=== PATIENT | male | born 1980 | race Caucasian/White ===

== ENCOUNTER 2021-05-07 15:46 | Emergency (ER) | payer OTHER, BC, SELFPAY ==
--- NOTE | ~2021-05-07 | XR_ITS ---
EXAMINATION: XR foot LT min 3V EXAM DATE: 05/07/2021 16:08 INDICATION: Stepped in hole, pain to left anterior foot. Initial encounter. TECHNIQUE: Left foot dorsoplantar, lateral and oblique projections obtained and reviewed. There is n o prior study for comparison. FINDINGS: Left metatarsal bones unremarkable. 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 There are no acute fractures or dislocations identified. There is no subcutaneous gas . The soft tissue is unremarkable. There are no radiopaque foreign bodies. IMPRESSION: 1. XR foot LT min 3V exam without acute osseous findings. Reviewed, dictated and finalized at location A. [facility]
[2021-05-07 16:01] VITALS: BP 157/105; PULSE 109; RESP 16; TEMP 36.8; O2SAT 99
--- NOTE | 2021-05-07 16:26 | ED.LOWEXIN ---
HPI - Extremity Injury (Lower) General Chief Complaint: Extremity Injury, Lower Stated Complaint: left foot work injury Time Seen by Provider: 05/07/21 16:17 Source: patient and RN notes reviewed Mode of arrival: ambulatory Limitations: no limitations History of Present Illness HPI Narrative: Patient presents today complaining of a left foot and ankle injury that occurred around 1030 this morning. He was working for [employer] and turned his foot incorrectly on a pile of frozen mud. The more he walked, the more painful his foot and ankle became. It became even worse after driving for a period of time around 1300 this afternoon. He has not tried any [id number] interventions for pain prior to arrival. MD complaint: ankle injury and foot injury Related Data Home Medications Medication Instructions Recorded Confirmed No Home Medications 07/29/20 07/29/20 Allergies Allergy/AdvReac Type Severity Reaction Status Date / Time No Known Allergies Allergy Unverified 05/07/21 16:08 Review of Systems Review of Systems: CONSTITUTIONAL: Denies body aches, fever, chills, or sweats. EYES: Denies visual changes, redness, or discharge. ENT: Denies rhinorrhea, congestion, sore throat, or otalgia. CARDIOVASCULAR: Denies chest pain, palpitations, or edema. RESPIRATORY: Denies cough or dyspnea. GASTROINTESTINAL: Denies abdominal pain, nausea, vomiting, or diarrhea. GENITOURINARY: Denies dysuria or hematuria. SKIN: Denies rash, itching, or wounds. MUSCULOSKELETAL: Denies back pain, or myalgia.+ Foot and ankle pain NEUROLOGIC: Denies headache, numbness, tingling, or weakness. PSYCH: Denies depression or anxiety. COUNTS INCLUDE 234 BEDS AT THE [facility] Family History Family History Mother Diabetes mellitus Social History Social History Smoking status: Never smoker Second hand tobacco smoke exposure: No Alcohol intake: current Substance use: never Substance use type: does not use Gender identity (if verbalized by the patient): Male Sexual Orientation (if Verbalized by the Patient): Straight or Heterosexual Comments At time of signature, I have reviewed and agree with nursing past medical, surgical, social and family history unless otherwise noted. Please see nursing chart for further information. There is no relevant family history pertinent to the presenting complaint Exam Narrative: GENERAL: Well-appearing, well-nourished, and in no acute distress. HEAD: Normocephalic, atraumatic. EYES: EOMI. No redness or drainage. Conjunctivae normal. ENT: Mucous membranes pink and moist. NECK: Normal AROM. CHEST: No respiratory distress. EXTREMITIES: Left ankle: Moderate swelling to the lateral ankle without tenderness. Mild soft tissue swelling medially with tenderness to palpation. No bony tenderness. Tenderness to the anterior ankle with mild edema as well. No tenderness, edema, ecchymosis to the foot. Distal sensation intact. Capillary refill normal. Pedal pulse normal. Full AROM of the foot. Dorsiflexion and plantarflexion without pain. Internal and external rotation elicit mild pain in the ankle. SKIN: Warm, dry, no rash. Capillary refill normal. Normal skin turgor. NEURO: No focal deficits. Alert and oriented x3. Gait steady. PSYCH: Normal affect. No signs of depression or anxiety. Course Course Level of Care: Express Care Visit Vital Signs Vital signs: Vital Signs Temperature 98.2 F 05/07/21 16:01 Pulse Rate 109 H 05/07/21 16:01 Respiratory Rate 16 05/07/21 16:01 Blood Pressure 157/105 H 05/07/21 16:01 Pulse Oximetry 99 05/07/21 16:01 Temperature 98.2 F 05/07/21 16:01 Pulse Rate 109 H 05/07/21 16:01 Respiratory Rate 16 05/07/21 16:01 Blood Pressure 157/105 H 05/07/21 16:01 Pulse Oximetry 99 05/07/21 16:01 Reviewed. Pt has been instructed to follow up with his PCP regarding his
== END 2021-05-07 16:35 | disposition home or self-care (01) ==
PROVIDERS: Emergency Provider Nurse Practitioner; PCP Family Medicine
DX: S93.402A Sprain of unspecified ligament of left ankle, initial encounter (principal); X50.9XXA Other and unspecified overexertion or strenuous movements or postures, initial encounter; Y99.0 Civilian activity done for income or pay
CPT/HCPCS: 73630; 99213; G0463